=== PATIENT | male | born 1995 | race Caucasian/White ===

== ENCOUNTER 2017-03-05 15:08 | Emergency (ER) | payer SELFPAY ==
[~2017-03-05] VITALS: Ht 180.3 cm; Wt 77.0 kg
[~2017-03-05 15:08] MED LIST: FLUPHENAZINE PO; HALDOL0.5 MG/TAB PO; PAROXETINE20 MG PO; TRILEPTAL300 MG PO
[2017-03-05] MEDS ORDERED: BENZTROPINE0.5 MG PO (15:21)
[2017-03-05] MEDS ORDERED: BENZTROPINE1 MG PO (15:29)
[2017-03-05 15:47] VITALS: BP 133/88
== END 2017-03-05 15:53 | disposition home or self-care (01) | DRG 951 ==
LOC: ED 15:08
DX: Z76.0 Encounter for issue of repeat prescription (principal); F32.9 Major depressive disorder, single episode, unspecified; F41.9 Anxiety disorder, unspecified

== ENCOUNTER 2017-03-12 06:53 | Emergency (ER) | payer SELFPAY ==
[~2017-03-12] VITALS: Ht 180.3 cm; Wt 77.3 kg
[~2017-03-12 06:53] MED LIST changes: +BENZTROPINE0.5 MG PO; +BENZTROPINE1 MG PO
[2017-03-12 08:34] VITALS: BP 144/63
== END 2017-03-12 08:39 | disposition home or self-care (01) | DRG 880 ==
LOC: ED 06:53
DX: F41.9 Anxiety disorder, unspecified (principal); F32.9 Major depressive disorder, single episode, unspecified
CPT/HCPCS: J2060

== ENCOUNTER 2017-04-03 20:46 | Emergency (ER) | payer SELFPAY ==
[~2017-04-03] VITALS: Ht 180.3 cm; Wt 77.0 kg
[2017-04-03] MEDS ORDERED: SEROQUEL100 MG PO (21:04)
[2017-04-03 21:49] LABS: HEMATOCRIT 41.7 % (39.0-50.0); IMMATURE GRANULOCYTES 0.3 % (0.0-1.0); MEAN CELL VOLUME 89.5 fL CALC (80.0-100.0); MEAN CORPUSCULAR HGB CONC 33.6 g/L CALC (32.0-36.0); NEUT# 4.39 thou/uL (1.82-7.42); RED BLOOD COUNT 4.66 mill/uL (4.70-6.10); RED CELL DISTRI WIDTH 12.5 % (11.5-15.5)
[2017-04-03 21:53] LABS: URINE BILIRUBIN - DIPSTICK NEGATIVE (NEGATIVE); URINE BLOOD DIPSTICK NEGATIVE (NEGATIVE); URINE CLARITY CLEAR; URINE COLOR YELLOW; URINE GLUCOSE - DIPSTICK NEGATIVE (NEGATIVE); URINE KETONE NEGATIVE (NEGATIVE); URINE LEUK ESTERASE NEGATIVE (NEGATIVE); URINE NITRITE - DIPSTICK NEGATIVE (Negative); URINE PROTEIN - DIPSTICK NEGATIVE (NEG-TRACE); URINE SPECIFIC GRAVITY 1.015; URINE UROBILINOGEN - DIPSTICK 0.2 E.U./dL (0.2)
[2017-04-03 21:56] LABS: BARBITURATES NEGATIVE (NEGATIVE); COCAINE NEGATIVE (NEGATIVE); METHADONE NEGATIVE (NEGATIVE); OXCYCODONE NEGATIVE (NEGATIVE); TETRAHYDROCANNABIONOL NEGATIVE (NEGATIVE); TRICYLIC ANTIDEPRESSANTS NEGATIVE (NEGATIVE)
[2017-04-03 22:01] LABS: ALKALINE PHOSPHATASE 54 u/l (38-126); ANION GAP 21 (6-22 (CALC)); BILIRUBIN, TOTAL 0.4 mg/dL (0.0-1.4); BUN 20 mg/dL (9-20); BUN/CREATININE RATIO 21 (12-20 (CALC)); CALCIUM 10.3 mg/dL (8.4-10.2); CARBON DIOXIDE 22 mmol/l (22-30); CHLORIDE 106 mmol/l (95-108); CREATININE 0.9 mg/dL (0.7-1.3); GFR > 60 ML/MIN (>=60 (CALC)); GFR FOR AFR.AMER. > 60 ML/MIN (>=60 (CALC)); GLUCOSE 103 mg/dL (75-110); POTASSIUM 3.4 mmol/l (3.5-5.1); SGOT/AST 21 u/l (17-59); SGPT/ALT 36 u/l (21-72); SODIUM 146 mmol/l (137-146)
[2017-04-03 22:48] VITALS: BP 102/50
== END 2017-04-03 22:50 | disposition home or self-care (01) | DRG 880 ==
LOC: ED 20:46
PROVIDERS: Emergency Medicine
DX: F41.9 Anxiety disorder, unspecified (principal)

== ENCOUNTER 2017-09-07 11:47 | Emergency (ER) | payer SELFPAY ==
[~2017-09-07] VITALS: Ht 180.3 cm; Wt 70.0 kg
[~2017-09-07 11:47] MED LIST changes: +SEROQUEL100 MG PO
[2017-09-07 12:36] LABS: HEMATOCRIT 45.5 % (39.0-50.0); HEMOGLOBIN 15.6 g/dl (14.0-18.0); IMMATURE GRANULOCYTES 0.2 % (0.0-1.0); MEAN CELL VOLUME 84.4 fL CALC (80.0-100.0); MEAN CORPUSCULAR HGB 28.9 pG CALC (26.0-32.0); MEAN CORPUSCULAR HGB CONC 34.3 g/L CALC (32.0-36.0); NEUT# 2.99 thou/uL (1.82-7.42); RED BLOOD COUNT 5.39 mill/uL (4.70-6.10); RED CELL DISTRI WIDTH 12.9 % (11.5-15.5)
[2017-09-07 12:40] LABS: URINE BILIRUBIN - DIPSTICK NEGATIVE (NEGATIVE); URINE BLOOD DIPSTICK NEGATIVE (NEGATIVE); URINE COLOR YELLOW; URINE GLUCOSE - DIPSTICK NEGATIVE (NEGATIVE); URINE KETONE 15 mg/dL (NEGATIVE); URINE LEUK ESTERASE NEGATIVE (NEGATIVE); URINE NITRITE - DIPSTICK NEGATIVE (Negative); URINE PROTEIN - DIPSTICK NEGATIVE (NEG-TRACE); URINE SPECIFIC GRAVITY <=1.005; URINE UROBILINOGEN - DIPSTICK 0.2 E.U./dL (0.2)
[2017-09-07 12:41] LABS: URINE CLARITY CLEAR
[2017-09-07 12:46] LABS: BARBITURATES NEGATIVE (NEGATIVE); COCAINE NEGATIVE (NEGATIVE); METHADONE NEGATIVE (NEGATIVE); OXCYCODONE NEGATIVE (NEGATIVE); TETRAHYDROCANNABIONOL NEGATIVE (NEGATIVE); TRICYLIC ANTIDEPRESSANTS NEGATIVE (NEGATIVE)
[2017-09-07 12:56] LABS: ALBUMIN 5.3 g/dL (3.2-5.0); ALKALINE PHOSPHATASE 71 u/l (38-126); ANION GAP 24 (6-22 (CALC)); BILIRUBIN, TOTAL 0.8 mg/dL (0.0-1.4); BUN 15 mg/dL (9-20); BUN/CREATININE RATIO 15 (12-20 (CALC)); CARBON DIOXIDE 16 mmol/l (22-30); CHLORIDE 107 mmol/l (95-108); GFR > 60 ML/MIN (>=60 (CALC)); GFR FOR AFR.AMER. > 60 ML/MIN (>=60 (CALC)); GLUCOSE 164 mg/dL (75-110); POTASSIUM 3.1 mmol/l (3.5-5.1); SGOT/AST 28 u/l (17-59); SGPT/ALT 28 u/l (21-72); SODIUM 144 mmol/l (137-146); TOTAL PROTEIN 8.4 g/dL (6.3-8.2)
[2017-09-07 13:06] LABS: MYOGLOBIN 21 ng/mL (0 - 121)
[2017-09-07] MEDS ORDERED: ATIVAN0.5 MG PO (14:03)
[2017-09-07 14:08] VITALS: BP 123/57
== END 2017-09-07 14:24 | disposition home or self-care (01) | DRG 880 ==
LOC: ED 11:47
PROVIDERS: Emergency Medicine
DX: F41.9 Anxiety disorder, unspecified (principal); F25.9 Schizoaffective disorder, unspecified; F31.9 Bipolar disorder, unspecified; Z91.14 Patient's other noncompliance with medication regimen

== ENCOUNTER 2018-06-04 21:46 | Emergency (ER) | payer SELFPAY ==
[~2018-06-04] VITALS: Ht 180.3 cm; Wt 77.3 kg
[~2018-06-04 21:46] MED LIST changes: +ATIVAN0.5 MG PO
[2018-06-04] MEDS ORDERED: SPIRIVA IN (21:57)
[2018-06-04] MEDS ORDERED: SYMBICORT1 AE1 IN (21:57)
[2018-06-04] MEDS ORDERED: SINGULAIR10 MG PO (21:58)
[2018-06-04] MEDS ORDERED: CLARITIN10 M1 PO (21:58)
[2018-06-04 22:24] LABS: BARBITURATES NEGATIVE (NEGATIVE); COCAINE NEGATIVE (NEGATIVE); METHADONE NEGATIVE (NEGATIVE); OXCYCODONE NEGATIVE (NEGATIVE); TETRAHYDROCANNABIONOL NEGATIVE (NEGATIVE); TRICYLIC ANTIDEPRESSANTS NEGATIVE (NEGATIVE)
[2018-06-05 00:30] VITALS: BP 113/62
[2018-06-05] MEDS ORDERED: XANAX0.5 MG PO (00:49)
[2018-06-07] MEDS ORDERED: PROAIR HFA108 MCG/AC IN (20:23)
[2018-06-07] MEDS ORDERED: VENTOLIN HFA IN (20:36)
[2018-06-11] MEDS ORDERED: HYDROXYZ PAM25 MG PO (19:23)
== END 2018-06-05 01:00 | disposition home or self-care (01) | DRG 880 ==
LOC: ED 21:46
PROVIDERS: Emergency Medicine
DX: F41.9 Anxiety disorder, unspecified (principal); J45.909 Unspecified asthma, uncomplicated; F20.9 Schizophrenia, unspecified